=== PATIENT | female | born 1940 | race Caucasian/White ===

== ENCOUNTER 2016-05-03 09:16 | Emergency (ER) | payer MEDICARE, OTHER ==
[2016-05-03] MEDS ORDERED: PROMETHAZINE 25 MG/1 ML VIAL IM STA (10:48)
[2016-05-03] MEDS ORDERED: HYDROmorphone 1 MG/ML SYRINGE IM STA (10:48)
[2016-05-03] MEDS ORDERED: MAGNESIUM CITRATE 296 ML BOTTLE ONE (13:01)
[2016-05-03] MEDS ORDERED: MAGNESIUM CITRATE 296 ML BOTTLE PO STA (13:02)
== END 2016-05-03 13:14 | disposition home or self-care (01) ==
DX: S32.000A Wedge compression fracture of unspecified lumbar vertebra, initial encounter for closed fracture (principal); S22.000A Wedge compression fracture of unspecified thoracic vertebra, initial encounter for closed fracture; W19.XXXA Unspecified fall, initial encounter; K59.00 Constipation, unspecified; E11.9 Type 2 diabetes mellitus without complications; Z79.84 Long term (current) use of oral hypoglycemic drugs
CPT/HCPCS: 72100; 96372; 99283; 99284; A9270

== ENCOUNTER 2017-11-18 12:57 | Outpatient (CLI) | payer MEDICARE, OTHER ==
--- NOTE | 2017-11-18 15:29 | DEXA Report ---
Procedure Date: 11/18/2017 Accession Number: [id number] / [id number] Procedure: DEX - Dexa Spine and/or Hip CPT Code: FULL RESULT: EXAM: DUAL EMISSION X-RAY ABSORPTIOMETRY (DXA) SCAN EXAM DATE: 11/18/2017 01:26 PM. CLINICAL HISTORY: History of spinal compression fracture. Postmenopausal. COMPARISON: None. ADDITIONAL PATIENT INFORMATION: History of steroid use. TECHNIQUE: Dual energy x-ray absorptiometry (DXA) was performed on a [employer] System. Regions measured at the AP spine, femoral neck, and if needed, forearm. TECHNIQUE LIMITATIONS/EXCLUSIONS: None. FINDINGS: Lumbar Spine: Bone mineral density 0.991 g/sq cm, T-score -1.7, Z-score -0.1. Femoral Neck: Bone mineral density 0.639 g/sq cm, T-score -2.9, Z-score -1.0. Total Hip: Bone mineral density 0.665 g/sq cm, T-score -2.7, Z-score -1.1. IMPRESSION: Osteoporosis. The fracture risk is high. World Health Organization (WHO) Reporting guidelines (based on lowest BMD) for postmenopausal and perimenopausal women, men age 50 years and older: Normal: T-score at or greater than -1.0 Osteopenia: T-score between -1.1 to -2.4 Osteoporosis: T-score at or less than -2.5
== END 2017-11-18 12:58 | disposition home or self-care (01) ==
LOC: DI 12:57
PROVIDERS: ATTEND Family Medicine
DX: M81.0 Age-related osteoporosis without current pathological fracture (principal); Z87.81 Personal history of (healed) traumatic fracture
CPT/HCPCS: 77080

== ENCOUNTER 2018-05-29 08:45 | Outpatient (CLI) | payer MEDICARE, OTHER ==
--- NOTE | 2018-05-29 11:37 | CT Report ---
Reason: OCCIPITAL NEURALGIA Procedure Date: 05/29/2018 Accession Number: [id number] / [id number] Procedure: CT - CERVICAL SPINE WO CPT Code: FULL RESULT: EXAM: CT CERVICAL SPINE WITHOUT CONTRAST DATE: 05/29/2018 09:05 AM. HISTORY: Occipital neuralgia. COMPARISONS: CT cervical spine 09/25/2014. TECHNIQUE: Thin-section axial images were acquired of the cervical spine without contrast. Post-processing: Coronal and sagittal reformats. Other: None. In accordance with CT protocol optimization, one or more of the following dose reduction techniques were utilized for this exam: automated exposure control, adjustment of mA and/or KV based on patient size, or use of iterative reconstructive technique. FINDINGS: No fracture line is present in the cervical vertebral bodies. No suspicious lytic or blastic region is identified in the cervical vertebral bodies. No significant arthrosis is seen at C0-C1. There is hypertrophic change and narrowing associated with the predental space. This is stable. There is minimal arthrosis at C1-C2 on the right which is stable. Uncovertebral joint spurring is seen in the mid and lower cervical spine. Scattered facet hypertrophy is seen. This is greatest on the left at C2-C3, C3-C4, and C5-C6, and it is greatest on the right at C3-C4. Bilateral facet hypertrophy is seen at C6-C7. Loss of disk space height is seen at C5-C6. Anterior disk protrusion and osteophyte formation are seen at multiple levels in the cervical spine, most evident from C4 through C6. This is stable. Grade 1 retrolisthesis of C5 relative to C6 and C4 relative to C5 are stable. No new spondylolisthesis has developed. C2-C3: No foraminal stenosis. C3-C4: Mild to moderate right foraminal stenosis. C4-C5: No foraminal stenosis. C5-C6: Moderate bilateral foraminal stenosis. C6-C7: Right foraminal narrowing. C7-T1: No foraminal stenosis. A posterior protrusion of disk and osteophyte is seen at C5-C6. There is suspicion for a posterior disk protrusion at C6-C7. There is no obvious central canal stenosis. No mass is present in the visualized nasopharynx. No mass is present in either submandibular gland or in either parotid gland. The thyroid gland is not significantly enlarged. Centrilobular emphysema is seen in each upper lung. Visualized mastoid air cells are well-aerated. IMPRESSION: 1. Stable cervical spine CT. 2. Degenerative disk disease and osteophyte formation are seen at C5-C6. 3. Multilevel foraminal stenosis is present and is discussed above. 4. Scattered facet hypertrophy is present and is discussed above. 5. No suspicious lytic or blastic region is seen in the region of the craniocervical junction. 6. Centrilobular emphysema. RADIA
== END 2018-05-29 08:46 | disposition home or self-care (01) ==
LOC: DI 08:45
PROVIDERS: ATTEND Specialist
DX: M54.81 Occipital neuralgia (principal); M50.322 Other cervical disc degeneration at C5-C6 level; M48.02 Spinal stenosis, cervical region; M25.78 Osteophyte, vertebrae; J43.2 Centrilobular emphysema
CPT/HCPCS: 72125

== ENCOUNTER 2018-06-19 13:58 | Outpatient (CLI) | payer MEDICARE, OTHER ==
--- NOTE | 2018-06-19 16:05 | XRAY Report ---
Reason: ACUTE ON CHRONIC LEFT SHOULDER PAIN Procedure Date: 06/19/2018 Accession Number: [id number] / [id number] Procedure: XR - Shoulder 3 View LT CPT Code: FULL RESULT: EXAM: LEFT SHOULDER RADIOGRAPHY EXAM DATE: 06/19/2018 02:09 PM. CLINICAL HISTORY: ACUTE ON CHRONIC LEFT SHOULDER PAIN. COMPARISON: SHOULDER 3 VIEW RT 09/25/2014 11:37 PM. TECHNIQUE: 3 views. FINDINGS: Bones: Normal. No fracture or bone lesion. Joints: The glenohumeral and acromioclavicular joints are normal. Soft tissues: The visualized hemithorax is unremarkable. No soft tissue swelling. IMPRESSION: Normal shoulder radiography. RADIA
== END 2018-06-19 13:59 | disposition home or self-care (01) ==
LOC: DI 13:58
PROVIDERS: ATTEND Family Medicine
DX: M25.512 Pain in left shoulder (principal)

== ENCOUNTER 2019-01-07 16:05 | Outpatient (CLI) | payer MEDICARE, OTHER ==
--- NOTE | 2019-01-09 09:00 | XRAY Report ---
Reason: ACUTE ON CHRONIC LBP Procedure Date: 01/07/2019 Accession Number: [id number] / [id number] Procedure: XR - Lumbar Spine 2 View CPT Code: FULL RESULT: EXAM: LUMBOSACRAL SPINE RADIOGRAPHY EXAM DATE: 01/07/2019 04:10 PM. CLINICAL HISTORY: Gbhnz-op-ctcyzqz low back pain. COMPARISONS: LUMBAR SPINE 2 VIEW 05/03/2016 10:58 AM. TECHNIQUE: 3 views. FINDINGS: Alignment: No spondylolisthesis. The mild upper lumbar spine dextroscoliosis is again seen, similar to the prior exam. Bones: Five dxt-lyv-iqdhmsi lumbar vertebral bodies are present. Nonacute moderated compressive fracture at L1 again noted, similar to the prior exam. No new fractures or bone lesions. Disks: The mild degenerative disk disease at L4-L5 and L5-S1 demonstrated no significant interval changes. Facets: Hypertrophic degenerative changes at L4-L5 and L5-S1 is moderately increased. Sacroiliac Joints: Unremarkable. Soft Tissues: Diffuse moderate vascular wall calcification of the abdominal aorta and common iliac arteries is slightly increased. The visualized bowel gas pattern is normal. Status post cholecystectomy is again noted. IMPRESSION: 1. Interval stable appearance of the moderate compression fracture of L1. 2. Moderate hypertrophic facet disease at L4-L5, L5-S1, worsening since last exam. 3. No significant interval change of the mild upper lumbar spine dextroscoliosis and the mild degenerative disk disease at L4-L5 and L5-S1. RADIA
== END 2019-01-07 16:06 | disposition home or self-care (01) ==
LOC: DI 16:05
PROVIDERS: ATTEND Family Medicine
DX: M51.36 Other intervertebral disc degeneration, lumbar region (principal); M48.56XD Collapsed vertebra, not elsewhere classified, lumbar region, subsequent encounter for fracture with routine healing; M47.816 Spondylosis without myelopathy or radiculopathy, lumbar region; M47.817 Spondylosis without myelopathy or radiculopathy, lumbosacral region; M51.37 Other intervertebral disc degeneration, lumbosacral region; M41.9 Scoliosis, unspecified
CPT/HCPCS: 72100

== ENCOUNTER 2019-05-27 10:57 | Outpatient (CLI) | payer MEDICARE, OTHER ==
--- NOTE | 2019-06-03 11:00 | Mammography Report ---
Reason: ROUTINE MAMMO Procedure Date: 05/27/2019 Accession Number: [id number] / [id number] Procedure: [facility]INI - Screening Mammo w/Jonathan CPT Code: Final Report FULL RESULT: EXAM: Screening Mammo w/Jonathan DATE: 05/27/2019 11:30 AM CLINICAL HISTORY: Screening encounter. Family history of breast cancer in the sister at the age of 79, mother at the age of 85 and maternal grandmother at the age of 60. TECHNIQUE: (B) - Bilateral CC and MLO views were obtained. COMPARISON: 01/29/2017 through 09/27/2009. PARENCHYMAL PATTERN: (A) - The breast(s) demonstrate(s) scattered fibroglandular densities. FINDINGS: There are no suspicious masses, calcifications, or areas of distortion. IMPRESSION: Negative examination. BI-RADS category 1. RECOMMENDATION: (ANNUAL) - Recommend routine annual screening mammography. BI-RADS CATEGORY: (1) - Negative. STANDARD QUALIFYING STATEMENTS: 1. This examination was not reviewed with the aid of Computer-Aided Detection (CAD). 2. A negative or benign imaging report should not preclude biopsy if clinically suspicious findings are present. 3. Dense breasts may obscure an underlying neoplasm. 4. This examination was reviewed with the aid of 3D breast imaging (tomosynthesis).
== END 2019-05-27 10:58 | disposition home or self-care (01) ==
LOC: DI 10:57
PROVIDERS: ATTEND Internal Medicine
DX: Z12.31 Encounter for screening mammogram for malignant neoplasm of breast (principal); Z80.3 Family history of malignant neoplasm of breast
CPT/HCPCS: 77063; 77067

== ENCOUNTER 2019-06-05 14:02 | Emergency (ER) | payer MEDICARE, OTHER ==
--- NOTE | 2019-06-05 14:59 | ED Physician Documentation ---
PD HPI URI - Stated complaint Stated Complaint: COUGH - Chief complaint Chief Complaint: Resp - History obtained from History obtained from: Patient - History of Present Illness Timing - onset: How many weeks ago (some cough and runny nose over few weeks, worse the past several days.) Timing duration: Days, Weeks Timing details: Gradual onset, Still present, Waxing and waning Associated symptoms: Nasal congestion, Dry cough, Dyspnea. No: Fever, Chills, Chest pain Contributing factors: COPD / asthma. No: Sick contact, Travel, Immunocompromised Improves by: MDI/nebulizer Worsened by: Activity, Other (couigh) Similar symptoms before: Diagnosis (allergies and exac asthma - has been on steroids burst and cough meds when get like this.) Recently seen: Not recently seen Review of Systems Constitutional: reports: Myalgias. denies: Fever, Chills Nose: reports: Rhinorrhea / runny nose, Congestion Throat: denies: Sore throat Cardiac: denies: Chest pain / pressure Respiratory: reports: Dyspnea, Cough GI: denies: Nausea, Vomiting, Diarrhea Skin: denies: Rash PD PAST MEDICAL HISTORY - Past Medical History Cardiovascular: High cholesterol Respiratory: Asthma, COPD Endocrine/Autoimmune: Type 2 diabetes GI: GERD, Chronic diarrhea, Chronic constipation : None HEENT: None Psych: Depression Musculoskeletal: Osteoarthritis, Osteoporosis, Chronic back pain Derm: None - Past Surgical History Past Surgical History: Yes General: Cholecystectomy, Appendectomy 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 HEENT: Cataracts, Tonsil/Adenoidectomy - Present Medications Home Medications: Ambulatory Orders Medication Instructions Recorded Confirmed Albuterol Sulfate [Proair Hfa] 8.5 gm IH Q4HR PRN 11/06/13 05/03/16 Alprazolam 0.5 mg PO BID PRN 11/06/13 05/03/16 Cyanocobalamin [Vitamin B-12] 500 mcg PO DAILY 11/06/13 05/03/16 Escitalopram [Lexapro] 20 mg PO DAILY 11/06/13 05/03/16 Esomeprazole Magnesium [Nexium] 40 mg PO DAILY 11/06/13 05/03/16 Gabapentin 600 mg PO TID 11/06/13 05/03/16 Glycopyrrolate 2 mg PO BID 11/06/13 05/03/16 Lisinopril 10 mg PO DAILY 11/06/13 05/03/16 Propranolol [Inderal] 10 mg PO DAILY 11/06/13 05/03/16 Trazodone HCl 100 - 200 mg PO QPM PRN 11/06/13 05/03/16 Triamcinolone Acetonide [Nasacort] 1 ml NS BID 11/06/13 05/03/16 metFORMIN [Glucophage] 500 mg PO BIDWM 11/06/13 05/03/16 Fluticasone/Salmeterol [Advair Hfa 12 gm IH BID 08/24/15 05/03/16 230-21 Mcg Inhaler] Saccharomyces Boulardii [Florastor] 250 mg PO BID 08/24/15 05/03/16 oxyCODONE [Roxicodone] 5 mg PO Q4-6H 08/24/15 05/03/16 Bisacodyl Supp [Dulcolax Supp] 10 mg DE DAILY PRN #10 supp 05/03/16 HYDROmorphone [Dilaudid] 2 mg PO Q4H PRN #30 tablet 05/03/16 traMADol [Ultram] 50 mg PO Q4-6H 05/03/16 05/03/16 Albuterol Sulfate [Albuterol 2 puffs IH QID #1 hfa.aer.ad 06/05/19 Sulfate Hfa] Benzonatate 100 mg PO TID PRN #25 capsule 06/05/19 Doxycycline Monohydrate 100 mg PO BID #14 tablet 06/05/19 dexAMETHasone [Decadron] 4 mg PO DAILY #7 tablet 06/05/19 - Allergies Allergies/Adverse Reactions: Allergies Allergy/AdvReac Type Severity Reaction Status Date / Time No Known Drug Allergies Allergy Verified 06/05/19 14:15 - Social History Does the pt smoke?: No Smoking Status: Never smoker Does the pt drink ETOH?: Yes Does the pt have substance abuse?: No - Immunizations Immunizations are current?: Yes Immunizations: TDAP current <10years - POLST Patient has POLST: Yes PD ED PE NORMAL - Vitals Vital signs reviewed: Yes - General General: Alert and oriented X 3, No acute distress, Well developed/nourished - HEENT HEENT: Moist mucous membranes, Pharynx benign - Neck Neck: Supple, no meningeal sign, No adenopathy - Cardiac Cardiac: RRR, No murmur - Respiratory Respiratory: No: Clear bilaterally (no coarse sounds. Has prolonged expiratory phase. ) Results - Vitals Vitals: Vital Signs - 24 hr 06/05/19 06/05/19 06/05/19 14:11 15:32 15:48 Temperature 37.3 C Heart Rate 98 88 96 Respiratory 20 20 Rate Blood Pressure 118/84 H 124/79 O2 Saturation 92 91 L 06/05/19 16:22 Temperature Heart Rate 92 Respiratory 18 Rate Blood Pressure 110/74 O2 Saturation 92 Oxygen O2 Source Room air - Rads (name of study) chest xray Radiology: Prelim report reviewed (prior scarring right lowe lobe. ), See rad report PD MEDICAL DECISION MAKING - ED course Complexity details: reviewed results (the scarring RLL could be c/w some element of infiltrate, given her increased cough and thu), re-evaluated patient, considered differential (does not seem ill, less likely infectious. Consider allergies.), d/w patient Departure - Departure Disposition: Home, Self Care Clinical Impression: Acute dyspnea Exacerbation of asthma Qualifiers: Asthma severity: moderate Asthma persistence: persistent Qualified Code(s): J45.41 - Moderate persistent asthma with (acute) exacerbation Condition: Stable Record reviewed to determine appropriate education?: Yes Follow-Up: Ronaldo Wan MD [Primary Care Provider] - Prescriptions: Albuterol Sulfate [Albuterol Sulfate Hfa] 2 puffs IH QID #1 hfa.aer.ad Benzonatate 100 mg PO TID PRN #25 capsule PRN Reason: Cough dexAMETHasone [Decadron] 4 mg PO DAILY #7 tablet Doxycycline Monohydrate 100 mg PO BID #14 tablet Comments: Continue usual medications. Use your follow-up for Albuteroll nebulizer or inhaler 3-4 times a day regularly for the next 5 to 7 days and then as needed. Use Decadron oral steroid daily for the next week as well. Benzonatate as needed for cough suppression. For concern of bacterial infection, will add doxycycline oral antibiotic twice daily for a week as well. Recheck if not improving well over the next 2 to 3 days. Return if worse. Discharge Date/Time: 06/05/19 16:24
--- NOTE | 2019-06-05 15:11 | XRAY Report ---
Reason: Productive cough for 2 weeks. Procedure Date: 06/05/2019 Accession Number: [id number] / [id number] Procedure: XR - Chest 2 View X-Ray CPT Code: 77494 Final Report FULL RESULT: EXAM: CHEST RADIOGRAPHY EXAM DATE: 06/05/2019 02:24 PM. CLINICAL HISTORY: Productive cough for 2 weeks. COMPARISON: CHEST 2 VIEW PA/LAT 08/24/2015 10:47 PM. TECHNIQUE: 2 views. FINDINGS: Lungs/Pleura: Residual disease/scarring and fibrosis is seen in right lower lung zone with loss of lung volume. Clear left lung. No focal opacities evident. No pleural effusion. No pneumothorax. Normal volumes. Mediastinum: Heart and mediastinal contours are unremarkable. Other: None. IMPRESSION: No acute cardiopulmonary process. Residual disease/scarring and fibrosis in right lower lung zone with loss of lung volume RADIA
[2019-06-05] MEDS ORDERED: CHERRY SYRUP 10 ML UDC PO ONE (15:19)
[2019-06-05] MEDS ORDERED: IPRATROPIUM/ALBUTEROL 3 ML NEB INH STA (15:19)
[2019-06-05] MEDS ORDERED: DEXAMETHASONE 10 MG/ML VIAL PO STA (15:19)
[2019-06-05] MEDS ORDERED: DOXYCYCLINE 100 MG TABLET PO STA (15:19)
[2019-06-05] MEDS ORDERED: BENZONATATE 100 MG CAPSULE PO STA (15:19)
[2019-06-05 16:24] VITALS: BP 110/74
== END 2019-06-05 16:24 | disposition home or self-care (01) ==
LOC: ED 14:02
DX: J45.41 Moderate persistent asthma with (acute) exacerbation (principal); J44.9 Chronic obstructive pulmonary disease, unspecified; E11.9 Type 2 diabetes mellitus without complications; Z79.84 Long term (current) use of oral hypoglycemic drugs
CPT/HCPCS: 71046; 94640; 99284; A9270

== ENCOUNTER 2019-09-25 11:44 | Emergency (ER) | payer MEDICARE, OTHER ==
[2019-09-25 12:06] VITALS: BP 112/73
[2019-09-25] MEDS ORDERED: DEXAMETHASONE 10 MG/ML VIAL IVP STA (12:27)
[2019-09-25] MEDS ORDERED: KETOROLAC 30 MG/ML VIAL IVP STA (12:27)
--- NOTE | 2019-09-25 12:28 | ED Physician Documentation ---
History of Present Illness - Stated complaint Stated Complaint: ENRIQUEZ - Chief complaint Chief Complaint: General - History obtained from History obtained from: Patient - History of Present Illness Timing: How many hours ago (4) Pain level max: 10 Pain level now: 5 - Additonal information Additional information: 79-year-old female presents to the emergency department with pain to the left side of her head, this been ongoing for the past 4 to 5 days. Occasionally reaches a 10 out of 10 pain. States it is sharp, intermittent. Nothing makes it better or worse. She saw her primary care provider yesterday, diagnosed with trigeminal neuralgia and given Tegretol. She states that she does not feel any better and her primary care provider told her to come here for an MRI and further evaluation. Apparently the MRI has been ordered as an outpatient already No trauma. No fever. Worse with palpation. No travel. No neck or back pain. Review of Systems Ten Systems: 10 systems reviewed and negative Constitutional: denies: Fever, Chills Ears: denies: Ear pain Nose: denies: Rhinorrhea / runny nose, Congestion Cardiac: denies: Palpitations Respiratory: denies: Cough GI: denies: Nausea, Vomiting, Diarrhea Skin: denies: Rash Musculoskeletal: denies: Neck pain, Back pain Neurologic: denies: Headache PD PAST MEDICAL HISTORY - Past Medical History Cardiovascular: High cholesterol Respiratory: Asthma, COPD Endocrine/Autoimmune: Type 2 diabetes GI: GERD, Chronic diarrhea, Chronic constipation : None HEENT: None Psych: Depression Musculoskeletal: Osteoarthritis, Osteoporosis, Chronic back pain Derm: None - Past Surgical History Past Surgical History: Yes General: Cholecystectomy, Appendectomy 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 HEENT: Cataracts, Tonsil/Adenoidectomy - Present Medications Home Medications: Ambulatory Orders Medication Instructions Recorded Confirmed Albuterol Sulfate [Proair Hfa] 2 puffs IH Q4HR PRN 11/06/13 09/25/19 Alprazolam 0.5 mg PO BID PRN 11/06/13 09/25/19 Cyanocobalamin [Vitamin B-12] 500 mcg PO DAILY 11/06/13 09/25/19 Escitalopram [Lexapro] 20 mg PO DAILY 11/06/13 09/25/19 Glycopyrrolate 2 mg PO TID PRN 11/06/13 09/25/19 Lisinopril 10 mg PO DAILY 11/06/13 09/25/19 Propranolol [Inderal] 10 mg PO DAILY 11/06/13 09/25/19 Trazodone HCl 100 - 200 mg PO QPM PRN 11/06/13 09/25/19 Triamcinolone Acetonide [Nasacort] 1 spray NS BID 11/06/13 09/25/19 metFORMIN [Glucophage] 500 mg PO BIDWM 11/06/13 09/25/19 Fluticasone/Salmeterol [Advair Hfa 2 puffs IH BID 08/24/15 09/25/19 230-21 Mcg Inhaler] Albuterol 2.5 mg INH Q4H PRN 09/25/19 09/25/19 Alendronate Sodium 70 mg PO OAW 09/25/19 09/25/19 Carbamazepine 200 mg PO BID PRN 09/25/19 09/25/19 Ergocalciferol (Vitamin D2) 0 unit PO DAILY 09/25/19 09/25/19 [Vitamin D2] Famotidine 20 mg PO DAILY 09/25/19 09/25/19 Gabapentin [Neurontin] 100 mg PO TID 09/25/19 09/25/19 Latanoprost 0.005% Ophth Drops 1 drops EACHEYE DAILY 09/25/19 09/25/19 [Xalatan Ophth Drops] Magnesium Oxide [Magnesium] 400 mg PO DAILY 09/25/19 09/25/19 Meloxicam [Mobic] 7.5 mg PO BID PRN #20 tablet 09/25/19 Rabeprazole Sodium 20 mg PO BID 09/25/19 09/25/19 Rosuvastatin Calcium 20 mg PO DAILY 09/25/19 09/25/19 Tiotropium [place] [Spiriva 2 inh IH DAILY 09/25/19 09/25/19 Respimat] predniSONE [Prednisone] 20 mg PO DAILY #5 tablet 09/25/19 - Allergies Allergies/Adverse Reactions: Allergies Allergy/AdvReac Type Severity Reaction Status Date / Time No Known Drug Allergies Allergy Verified 09/25/19 12:06 - Social History Does the pt smoke?: No Smoking Status: Never smoker Does the pt drink ETOH?: Yes Does the pt have substance abuse?: No - Immunizations Immunizations are current?: Yes Immunizations: TDAP current <10years - POLST Patient has POLST: Yes PD ED PE NORMAL - Vitals Vital signs reviewed: Yes - General General: Alert and oriented X 3, No acute distress, Well developed/nourished - HEENT HEENT: Atraumatic, PERRL, EOMI, Ears normal, Moist mucous membranes, Pharynx benign, Other (No temporal artery tenderness. There is tenderness on the left side of the scalp. 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, No motor deficit, No sensory deficit, Normal speech Eye Opening: Spontaneous Motor: Obeys Commands Verbal: Oriented GCS Score: 15 - Psych Psych: Normal mood, Normal affect Results - Vitals Vitals: Vital Signs - 24 hr 09/25/19 11:55 Temperature 36.8 C Heart Rate 108 H Respiratory 16 Rate Blood Pressure 112/73 O2 Saturation 92 Oxygen O2 Source Room air - Labs Labs: Laboratory Tests 09/25/19 09/25/19 09/25/19 12:36 12:36 12:36 WBC 6.6 RBC 3.68 L Hgb 11.9 L Hct 35.6 L MCV 96.7 MCH 32.3 H MCHC 33.4 RDW 13.8 Plt Count 148 MPV 9.1 Neut # (Auto) 3.5 Lymph # (Auto) 2.3 [place] # (Auto) 0.6 Eos # (Auto) 0.1 Baso # (Auto) 0.0 Absolute Nucleated RBC 0.00 Nucleated RBC % 0.0 ESR 11 Sodium 138 Potassium 4.2 Chloride 100 L Carbon Dioxide 30 Anion Gap 8.0 BUN 11 Creatinine 0.5 Estimated GFR (MDRD) 120 Glucose 222 H Calcium 9.0 C-Reactive Protein < 1.0 - Rads (name of study) Head CT Radiology: Prelim report reviewed, EMP read contemporaneously, See rad report (No acute abnormality) PD MEDICAL DECISION MAKING - ED course Complexity details: reviewed results, re-evaluated patient, considered differential, d/w patient ED course: 79-year-old female with a left-sided headache. Feels better after Toradol and dexamethasone. Will prescribe anti-inflammatories for home. Unclear etiology o f her symptoms. Not consistent with temporal arteritis. Possible occipital neuralgia? Normal neuro exam. We will have her continue the Tegretol at home as well. No evidence of subarachnoid hemorrhage, meningitis. Patient and family counseled regarding signs and symptoms for which I believe and urgent re- evaluation would be necessary. Patient with good understanding of and agreement to plan and is comfortable going home at this time This document was made in part using voice recognition software. While efforts are made to proofread this document, sound alike and grammatical errors may oc cur. Departure - Departure Disposition: Home, Self Care Clinical Impression: Head ache Qualifiers: Headache type: unspecified Headache chronicity pattern: acute headache Intractability: not intractable Qualified Code(s): R51 - Headache Condition: Good Instructions: ED Cephalgia Unspecified Follow-Up: Ronaldo Wan MD [Primary Care Provider] - Within 1 week Prescriptions: Meloxicam [Mobic] 7.5 mg PO BID PRN #20 tablet PRN Reason: Pain predniSONE [Prednisone] 20 mg PO DAILY #5 tablet Comments: Your prescriptions were sent electronically to [facility] in [place]. Return if you worsen. Your laboratory testing does not show any acute abnormalities today and your head CT is normal. Follow-up with your primary care provider for further care. Discharge Date/Time: 09/25/19 13:50
[2019-09-25 12:48] LABS: BASOPHILS % (AUTO) 0.3 %; EOSINOPHILS # (AUTO) 0.1 10^3/uL (0.0-0.7); EOSINOPHILS % (AUTO) 1.4 %; HGB - HEMOGLOBIN 11.9 g/dL (12.0-16.0); LYMPHOCYTES # (AUTO) 2.3 10^3/uL (1.5-3.5); LYMPHOCYTES % (AUTO) 34.4 %; MEAN CORPUSCULAR HEMOGLOBIN 32.3 pg (27.0-31.0); MEAN CORPUSCULAR HGB CONC 33.4 g/dL (32.0-36.0); MEAN CORPUSCULAR VOLUME 96.7 fL (81.0-99.0); MEAN PLATELET VOLUME 9.1 fL (7.9-10.8); MONOCYTES # (AUTO) 0.6 10^3/uL (0.0-1.0); MONOCYTES % (AUTO) 9.7 %; NEUTROPHILS # (AUTO) 3.5 10^3/uL (1.5-6.6); NEUTROPHILS % (AUTO) 53.9 %; PLT - PLATELET COUNT 148 10^3/uL (130-450); RED BLOOD COUNT 3.68 10^6/uL (4.20-5.40); RED CELL DISTRIBUTION WIDTH 13.8 % (12.0-15.0); WHITE BLOOD COUNT 6.6 x10^3/uL (4.8-10.8)
[2019-09-25 13:09] LABS: BUN - BLOOD UREA NITROGEN 11 mg/dL (6-20); CARBON DIOXIDE - CO2 30 mmol/L (21-32); CHLORIDE 100 mmol/L (101-111); CREATININE 0.5 mg/dL (0.4-1.0); GLUCOSE 222 mg/dL (70-100); SODIUM 138 mmol/L (135-145)
[2019-09-25 13:10] LABS: CRP - C-REACTIVE PROTEIN < 1.0 mg/dL (0-1.0)
--- NOTE | 2019-09-25 13:29 | CT Report ---
PROCEDURE: HEAD WO INDICATIONS: headache. L sided TECHNIQUE: Noncontrast 4.5 mm thick angled axial sections acquired from the foramen magnum to the vertex. For r adiation dose reduction, the following was used: automated exposure control, adjustment of mA and/or kV according to patient size. COMPARISON: None. FINDINGS: Image quality: Excellent. CSF spaces: Basal cisterns are patent. No extra-axial fluid collections. Ventricles are normal in size and shape. Brain: No midline shift. No intracranial masses or hemorrhage. Blue-white matter interface is norm al. Skull and face: Calvarium and visualized facial bones are intact, without suspicious lesions. Sinuses: Visualized sinuses and mastoids are clear. IMPRESSION: Normal for age, source of current symptoms is not seen. Reviewed by: Santosh Penn MD on 09/25/2019 1:28 PM PDT Approved by: Santosh Penn MD on 09/25/2019 1:28 PM PDT Station ID: [id number]
== END 2019-09-25 13:50 | disposition home or self-care (01) ==
LOC: ED 11:44
DX: R51 Headache (principal); E11.9 Type 2 diabetes mellitus without complications; Z79.84 Long term (current) use of oral hypoglycemic drugs
CPT/HCPCS: 36415; 70450; 80048; 85025; 85651; 86140; 96374; 99285

== ENCOUNTER 2019-09-29 16:41 | Outpatient (CLI) | payer MEDICARE, OTHER ==
[2019-09-29] MEDS ORDERED: GADOBUTROL 7.5 MMOL/7.5 ML VIAL ONE (16:57)
[2019-09-29] MEDS ORDERED: GADOBUTROL 7.5 MMOL/7.5 ML VIAL IVP ONE (17:42)
--- NOTE | 2019-09-30 15:36 | MRI Report ---
PROCEDURE: Brain W/WO INDICATIONS: TRIGEMINAL NEURALGIA CONTRAST: IV CONTRAST: Gadavist ml: 7.5 TECHNIQUE: Noncontrast axial T1 spin echo, axial T2 fast spin echo, sagittal and axial FLAIR, coronal T2 fast sp in echo, axial gradient echo, axial diffusion and ADC through the brain. After the administration of contrast, axial and coronal T1 spin echo with fat saturation through the brain. COMPARISON: CT head 09/25/2019. FINDINGS: Image quality: Excellent. CSF spaces: Basal cisterns are patent. No extra-axial fluid collections. Ventricles are normal in size and shape. Brain: No midline shift. No intracranial bleeds or masses. No abnormal intracranial enhancement. There is cerebral volume loss for age. There is periventricular white matter chronic small vessel is chemic change. The brainstem appears normal. Diffusion-weighted images demonstrate no acute ischemi c insults. No chronic ischemic insults. Normal intravascular flow voids are present. Visualized cranial nerves demonstrate no areas of abnormal enhancement, mass lesion or abnormal signa l. Skull and face: Calvarial marrow is normal in signal. Orbits appear normal. Sinuses: Sinuses and mastoids appear clear. IMPRESSION: 1. No acute intracranial process. 2. Moderate atrophy and chronic microvascular ischemic changes. 3. Visualized cranial nerves demonstrate no areas of abnormal signal, mass lesion or enhancement. Reviewed by: Pilar Lloyd MD on 09/30/2019 3:34 PM PDT Approved by: Pilar Lloyd MD on 09/30/2019 3:34 PM PDT Station ID: [id number]
== END 2019-09-29 16:42 | disposition home or self-care (01) ==
LOC: DI 16:41
PROVIDERS: ATTEND Physician Assistant Medical
DX: G50.0 Trigeminal neuralgia (principal)
CPT/HCPCS: 70553; A9585

== ENCOUNTER 2019-10-12 14:07 | Outpatient (CLI) | payer MEDICARE, OTHER ==
--- NOTE | 2019-10-12 17:22 | XRAY Report ---
PROCEDURE: Hip w/Pelvis 2-3V LT INDICATIONS: ACUTE ON CHRONIC L HIP PX TECHNIQUE: AP pelvis with lateral view(s) of the bilateral hip(s). COMPARISON: None. FINDINGS: Bones: No fractures or dislocations. Pelvic ring appears intact. No suspicious bony lesions. Mode rate to severe bilateral degenerative hip joint space narrowing. Soft tissues: The visualized bowel gas pattern is normal. No suspicious soft tissue calcifications. IMPRESSION: Moderate to severe bilateral degenerative hip joint space narrowing most suggestive oste oarthritis. Reviewed by: Pilar Lloyd MD on 10/12/2019 5:21 PM PDT Approved by: Pilar Lloyd MD on 10/12/2019 5:21 PM PDT Station ID: [id number]
== END 2019-10-12 14:08 | disposition home or self-care (01) ==
LOC: DI 14:07
PROVIDERS: ATTEND Family Medicine
DX: M16.0 Bilateral primary osteoarthritis of hip (principal)

== ENCOUNTER 2019-10-19 05:05 | Emergency (ER) | payer MEDICARE, OTHER ==
--- NOTE | 2019-10-19 05:16 | ED Physician Documentation ---
PD HPI UPPER EXT INJURY - Stated complaint Stated Complaint: GLF/SHOULDER/BACK PX - Chief complaint Chief Complaint: Ext Problem - History obtained from History obtained from: Patient - History of Present Illness Location: Left, Shoulder, Other (also scapular area) Type of injury: Fall (She got up to go to the bathroom and has had some balance problems. She states she remembers missing a step on the stairs and falling down 3 steps onto her left shoulder. Pain left shoulders and scapula and upper ribs) Where injury occurred: Home Timing - onset: How many minutes ago (30) Timing - details: Abrupt onset, Still present Worsened by: Moving (of the shoulder) Associated symptoms: No: Weakness, Numbness Similar symptoms before: Has not had sx before Review of Systems Constitutional: denies: Fever, Chills Nose: denies: Rhinorrhea / runny nose, Congestion Throat: denies: Sore throat Cardiac: reports: Chest pain / pressure (left upper chest near clavicle.). denies: Palpitations Respiratory: denies: Dyspnea, Cough GI: denies: Abdominal Pain, Nausea, Vomiting, Diarrhea Skin: reports: Abrasion (s) (left knee) Neurologic: reports: Generalized weakness. 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 HEENT: Cataracts, Tonsil/Adenoidectomy - Present Medications Home Medications: Ambulatory Orders Medication Instructions Recorded Confirmed Albuterol Sulfate [Proair Hfa] 2 puffs IH Q4HR PRN 11/06/13 09/25/19 Alprazolam 0.5 mg PO BID PRN 11/06/13 09/25/19 Cyanocobalamin [Vitamin B-12] 500 mcg PO DAILY 11/06/13 09/25/19 Escitalopram [Lexapro] 20 mg PO DAILY 11/06/13 09/25/19 Glycopyrrolate 2 mg PO TID PRN 11/06/13 09/25/19 Lisinopril 10 mg PO DAILY 11/06/13 09/25/19 Propranolol [Inderal] 10 mg PO DAILY 11/06/13 09/25/19 Trazodone HCl 100 - 200 mg PO QPM PRN 11/06/13 09/25/19 Triamcinolone Acetonide [Nasacort] 1 spray NS BID 11/06/13 09/25/19 metFORMIN [Glucophage] 500 mg PO BIDWM 11/06/13 09/25/19 Fluticasone/Salmeterol [Advair Hfa 2 puffs IH BID 08/24/15 09/25/19 230-21 Mcg Inhaler] Albuterol 2.5 mg INH Q4H PRN 09/25/19 09/25/19 Alendronate Sodium 70 mg PO OAW 09/25/19 09/25/19 Carbamazepine 200 mg PO BID PRN 09/25/19 09/25/19 Ergocalciferol (Vitamin D2) 0 unit PO DAILY 09/25/19 09/25/19 [Vitamin D2] Famotidine 20 mg PO DAILY 09/25/19 09/25/19 Gabapentin [Neurontin] 100 mg PO TID 09/25/19 09/25/19 Latanoprost 0.005% Ophth Drops 1 drops EACHEYE DAILY 09/25/19 09/25/19 [Xalatan Ophth Drops] Magnesium Oxide [Magnesium] 400 mg PO DAILY 09/25/19 09/25/19 Meloxicam [Mobic] 7.5 mg PO BID PRN #20 tablet 09/25/19 Rabeprazole Sodium 20 mg PO BID 09/25/19 09/25/19 Rosuvastatin Calcium 20 mg PO DAILY 09/25/19 09/25/19 Tiotropium [place] [Spiriva 2 inh IH DAILY 09/25/19 09/25/19 Respimat] predniSONE [Prednisone] 20 mg PO DAILY #5 tablet 09/25/19 - Allergies Allergies/Adverse Reactions: Allergies Allergy/AdvReac Type Severity Reaction Status Date / Time No Known Drug Allergies Allergy Verified 10/19/19 05:10 - Social History Does the pt smoke?: No Smoking Status: Never smoker Does the pt drink ETOH?: Yes Does the pt have substance abuse?: No - Immunizations Immunizations are current?: Yes Immunizations: TDAP current <10years - POLST Patient has POLST: Yes PD ED PE NORMAL - Vitals Vital signs reviewed: Yes - General General: Alert and oriented X 3, Well developed/nourished - HEENT HEENT: Atraumatic - Neck Neck: Supple, no meningeal sign, No bony TTP, No adenopathy - Cardiac Cardiac: RRR, No murmur - Respiratory Respiratory: Clear bilaterally, Other (There is tenderness in the left upper chest wall anteriorly and some towards this lateral scapular area. There is tenderness at the proximal humerus with very guarded motion) - Abdomen Abdomen: Soft, Non tender - Back Back: No CVA TTP, No spinal TTP - Derm Derm: Normal color, Warm and dry - Extremities Extremities: No deformity, No edema, No calf tenderness / cord, Other (Tender at the proximal left humerus with guarded range of motion and very limited. No gross deformity noted.) - Neuro Neuro: Alert and oriented X 3, No motor deficit, Normal speech Eye Opening: Spontaneous Motor: Obeys Commands Verbal: Oriented GCS Score: 15 Results - Vitals Vitals: Vital Signs - 24 hr 10/19/19 10/19/19 10/19/19 05:10 05:12 06:25 Temperature 36.9 C Heart Rate 94 92 88 Respiratory 20 20 16 Rate Blood Pressure 116/68 104/72 107/55 L O2 Saturation 90 L 92 100 10/19/19 07:14 Temperature Heart Rate 86 Respiratory 16 Rate Blood Pressure 112/80 O2 Saturation 95 Oxygen O2 Source Room air - Labs Labs: Laboratory Tests 10/19/19 10/19/19 05:25 05:25 WBC 10.7 RBC 4.00 L Hgb 13.2 Hct 38.2 MCV 95.5 MCH 33.0 H MCHC 34.6 RDW 13.1 Plt Count 157 MPV 9.3 Neut # (Auto) 5.9 Lymph # (Auto) 3.4 [place] # (Auto) 1.1 H Eos # (Auto) 0.1 Baso # (Auto) 0.0 Absolute Nucleated RBC 0.00 Nucleated RBC % 0.0 Sodium 136 Potassium 4.0 Chloride 101 Carbon Dioxide 27 Anion Gap 8.0 BUN 12 Creatinine 0.5 Estimated GFR (MDRD) 120 Glucose 213 H Calcium 9.1 Total Bilirubin 0.4 AST 14 ALT 15 Alkaline Phosphatase 49 Total Protein 6.5 L Albumin 3.9 Globulin 2.6 Albumin/Globulin Ratio 1.5 Lipase 23 - Rads (name of study) ct chest Radiology: EMP read contemporaneously, See rad report left shoulder Radiology: EMP read contemporaneously (Impacted and comminuted humeral neck and head fracture. No pneumothorax is seen.), See rad report Departure - Departure Disposition: 01 Home, Self Care Clinical Impression: Accidental fall Qualifiers: Encounter type: initial encounter Qualified Code(s): W19.XXXA - Unspecified fall, initial encounter Humeral surgical neck fracture Qualifiers: Encounter type: initial encounter Fracture type: closed Fracture morphology: unspecified fracture morphology Fracture alignment: nondisplaced Laterality: left Qualified Code(s): S42.215A - Unspecified nondisplaced fracture of surgical neck of left humerus, initial encounter for closed fracture Condition: Stable Record reviewed to determine appropriate education?: Yes Instructions: ED Fx Shoulder Follow-Up: Ronaldo Wan MD [Primary Care Provider] - Yossi Parra MD [Provider Admit Priv/Credential] - Comments: Use a sling for immobilization of the shoulder to allow healing and reduce pain. Sleep and rest and the best position of comfort for it. Follow-up with orthopedics in about a week, call later today for an appointment. Continue usual medications as needed for pain. Initially Tylenol 3-4 times a day and add pain pills if needed. You will be in a sling for about 4 to 6 weeks though they typically will start range of motion exercises after a week or 2 of it initially healing Discharge Date/Time: 10/19/19 07:14
[2019-10-19] MEDS ORDERED: HYDROmorphone 1 MG/ML CARPUJECT IVP STA ×2 (05:26→06:33)
[2019-10-19] MEDS ORDERED: KETOROLAC 15 MG/ML VIAL IVP STA (05:26)
[2019-10-19] MEDS ORDERED: SODIUM CHLORIDE 0.9% 1,000 ML IV STA (05:26)
[2019-10-19] MEDS ORDERED: ONDANSETRON 4 MG/2 ML VIAL IVP STA (05:26)
[2019-10-19 05:36] LABS: BASOPHILS % (AUTO) 0.4 %; EOSINOPHILS # (AUTO) 0.1 10^3/uL (0.0-0.7); HGB - HEMOGLOBIN 13.2 g/dL (12.0-16.0); LYMPHOCYTES # (AUTO) 3.4 10^3/uL (1.5-3.5); LYMPHOCYTES % (AUTO) 32.2 %; MEAN CORPUSCULAR HGB CONC 34.6 g/dL (32.0-36.0); MEAN CORPUSCULAR VOLUME 95.5 fL (81.0-99.0); MEAN PLATELET VOLUME 9.3 fL (7.9-10.8); MONOCYTES # (AUTO) 1.1 10^3/uL (0.0-1.0); MONOCYTES % (AUTO) 10.3 %; NEUTROPHILS # (AUTO) 5.9 10^3/uL (1.5-6.6); NEUTROPHILS % (AUTO) 55.5 %; PLT - PLATELET COUNT 157 10^3/uL (130-450); RED CELL DISTRIBUTION WIDTH 13.1 % (12.0-15.0); WHITE BLOOD COUNT 10.7 x10^3/uL (4.8-10.8)
[2019-10-19 05:48] LABS: ALBUMIN 3.9 g/dL (3.2-5.5); ALBUMIN/GLOBULIN RATIO 1.5 (1.0-2.2); BILIRUBIN,TOTAL 0.4 mg/dL (0.2-1.0); CALCIUM 9.1 mg/dL (8.5-10.3); CREATININE 0.5 mg/dL (0.4-1.0); TOTAL PROTEIN 6.5 g/dL (6.7-8.2)
[2019-10-19] MEDS ORDERED: IOVERSOL 320 100 ML VIAL IVP ONE ×2 (05:54→06:37)
[2019-10-19 07:15] VITALS: BP 112/80
--- NOTE | 2019-10-19 07:53 | XRAY Report ---
PROCEDURE: Shoulder 2 View LT INDICATIONS: fall to left shoulder TECHNIQUE: 2 views of the shoulder were acquired. COMPARISON: None. FINDINGS: Bones: Comminuted fracture of the left humeral head. Left second, third and fifth rib fractures are n oted. Soft tissues: No suspicious soft tissue calcifications. IMPRESSION: 1. Comminuted proximal left humerus fracture. 2. Displaced left second, third and fifth rib fractures. Reviewed by: Marissa Rm MD, PhD on 10/19/2019 7:52 AM PDT Approved by: Marissa Rm MD, PhD on 10/19/2019 7:52 AM PDT Station ID: [id number]
--- NOTE | 2019-10-19 08:30 | CT Report ---
PROCEDURE: CHEST W INDICATIONS: fall down steps, pain left shoulder/chest CONTRAST: IV CONTRAST: Optiray 320 ml: 100 PO CONTRAST: *NO PO CONTRAST TECHNIQUE: After the administration of intravenous contrast, 5 mm thick sections acquired from the pulmonary api stefanie to the posterior costophrenic angles. 7 mm thick coronal MIP reformats were acquired. For radia tion dose reduction, the following was used: automated exposure control, adjustment of mA and/or kV according to patient size. COMPARISON: 2 view chest x-ray 06/05/2019 and 08/24/2015. FINDINGS: Image quality: Excellent. Lungs and pleura: Probable scarring in the lateral periphery of the right lung base. Mild apical pred ominant centrilobular emphysematous disease. Trace left-sided hemothorax. No pneumothorax. Central and peripheral airways are patent and normal in caliber. Mediastinum: Postsurgical changes in the right ellie/mediastinum. Heart size is normal. Atherosclero tic calcifications noted in the aorta, great vessels and coronary vasculature. No pericardial effusi on. No mediastinal or hilar adenopathy by size criteria. Thoracic aorta and central pulmonary arter ies are normal in size. Esophagus is normal in caliber. No hiatal hernia. Bones and chest wall: Mildly displaced left first, second, third, fourth and fifth rib fractures. Com minuted fracture of the left humeral head/neck. No acute appearing T10, T11 and T12 compression fract ures. Spine degenerative disc disease and facet arthropathy are noted. No axillary or supraclavicula r adenopathy by size criteria. Thyroid gland is within normal limits. Abdomen: Status post cholecystectomy. There is a partially visualized 1.7 cm in diameter exophytic l esion involving the anterior margin of the right right kidney has density measurements of 57 Hounsfie ld units. IMPRESSION: 1. Comminuted proximal left humerus fracture. 2. Left first, second, third, fourth and fifth rib fractures. 3. Trace left hemithorax. No pneumothorax. 4. Probable masslike scarring in the right lung base. Recommend follow-up CT scan in 3 months to conf irm stability of the finding. 4. Emphysema. 5. Atherosclerosis including the coronary vasculature. 6. Suspicious, partially visualized right renal nodule. Recommend dedicated CT scan of the abdomen wi th and without contrast (renal protocol) for further evaluation. 7. Postsurgical changes. Reviewed by: Marissa Rm MD, PhD on 10/19/2019 8:28 AM PDT Approved by: Marissa Rm MD, PhD on 10/19/2019 8:28 AM PDT Station ID: [id number]
== END 2019-10-19 07:14 | disposition home or self-care (01) ==
LOC: ED 05:05
DX: S42.215A Unspecified nondisplaced fracture of surgical neck of left humerus, initial encounter for closed fracture (principal); S22.42XA Multiple fractures of ribs, left side, initial encounter for closed fracture; S27.1XXA Traumatic hemothorax, initial encounter; S80.212A Abrasion, left knee, initial encounter; W10.9XXA Fall (on) (from) unspecified stairs and steps, initial encounter; Y92.009 Unspecified place in unspecified non-institutional (private) residence as the place of occurrence of the external cause; J43.2 Centrilobular emphysema; E11.9 Type 2 diabetes mellitus without complications; Z79.84 Long term (current) use of oral hypoglycemic drugs
CPT/HCPCS: 36415; 71260; 73030; 80053; 83690; 85025; 96361; 96374; 96376; 99284; J1170; Q9967

== ENCOUNTER → 2019-10-29 | Outpatient (CLI) | payer MEDICARE, OTHER ==
--- NOTE | 2019-10-29 15:07 | XRAY Report ---
Reason: LEFT HUMERAL HEAD FRACTURE Procedure Date: 10/29/2019 Accession Number: [id number] / [id number] Procedure: WCP - Shoulder 3 View LT CPT Code: Final Report FULL RESULT: PROCEDURE: Shoulder 3 View LT INDICATIONS: LEFT HUMERAL HEAD FRACTURE TECHNIQUE: 3 views of the shoulder were acquired. COMPARISON: Left shoulder x-ray 10/19/2019, chest CT 10/19/2019. FINDINGS: Bones: A comminuted fracture of the proximal humeral head and neck are redemonstrated. There is probable slight interval increased displacement of the fracture fragments although comparison is limited due to differences in projection. Impaction of the humeral shaft component is demonstrated. Multiple left rib fractures are redemonstrated as seen on the prior CT, involving the first through fifth ribs. Soft tissues: No definite pneumothorax. No suspicious soft tissue calcifications. IMPRESSION: 1. Comminuted fracture of the left humeral head and neck redemonstrated. There is suggestion of increased displacement compared to the prior study although evaluation is limited by differences in projection. Further characterization may be obtained with a shoulder CT if clinically indicated. 2. Multiple left rib fractures redemonstrated. Reviewed by: Luis Alfredo Ward MD on 10/29/2019 3:05 PM PDT Approved by: Luis Alfredo Ward MD on 10/29/2019 3:05 PM PDT Station ID: [id number]
== END ==
LOC: DI.WCP 07:34
PROVIDERS: ATTEND Physician Assistant
DX: S42.292D Other displaced fracture of upper end of left humerus, subsequent encounter for fracture with routine healing (principal); S22.42XD Multiple fractures of ribs, left side, subsequent encounter for fracture with routine healing

== ENCOUNTER 2019-11-27 12:01 | Outpatient (CLI) | payer MEDICARE, OTHER ==
--- NOTE | 2019-11-27 12:05 | XRAY Report ---
PROCEDURE: Humerus LT INDICATIONS: LEFT HUMERUS FRACTURE TECHNIQUE: 2 views of the humerus were acquired. COMPARISON: Left shoulder radiographs dated 10/29/2019 FINDINGS: Bones: Comminuted impacted fracture of the left proximal humerus is redemonstrated with mild callus f ormation compatible with interval healing changes. Multiple rib fractures are again seen which appear mildly displaced and not significantly changed in alignment when compared to the radiographs from . Soft tissues: No suspicious soft tissue calcifications. IMPRESSION: Mild progressive healing changes at the previously seen left proximal humeral fracture with unchanged alignment. Left-sided rib fractures are again noted. Reviewed by: Steve Johnston MD on 11/27/2019 12:04 PM PDT Approved by: Steve Johnston MD on 11/27/2019 12:04 PM PDT Station ID: [id number]
== END 2019-11-27 23:59 | disposition home or self-care (01) ==
LOC: DI.WCP 12:01
PROVIDERS: ATTEND Physician Assistant
DX: M25.512 Pain in left shoulder (principal); S42.202D Unspecified fracture of upper end of left humerus, subsequent encounter for fracture with routine healing; S22.42XD Multiple fractures of ribs, left side, subsequent encounter for fracture with routine healing

== ENCOUNTER 2020-01-22 11:36 | Outpatient (CLI) | payer MEDICARE, OTHER ==
--- NOTE | 2020-01-22 11:39 | XRAY Report ---
PROCEDURE: Humerus LT INDICATIONS: LEFT HUMERUS FRACTURE TECHNIQUE: 2 views of the humerus were acquired. COMPARISON: 11/27/2019, 10/29/2019 and 10/19/2019 FINDINGS: Bones: There is interval further healing at patient's known proximal humeral shaft fracture site with increased sclerosis. No new fracture or dislocation. Alignment of left humerus is unchanged from shelbie or study.. No suspicious bony lesions. Soft tissues: No suspicious soft tissue calcifications. IMPRESSION: Interval further healing of proximal humeral fracture site with stable humeral alignment. Reviewed by: Parish Mcknight MD on 01/22/2020 10:38 AM LAITH Approved by: Parish Mcknight MD on 01/22/2020 10:38 AM LAITH Station ID: [id number]
== END 2020-01-22 23:59 | disposition home or self-care (01) ==
LOC: DI.WCP 11:36
PROVIDERS: ATTEND Physician Assistant
DX: M25.512 Pain in left shoulder (principal); S42.202A Unspecified fracture of upper end of left humerus, initial encounter for closed fracture

== ENCOUNTER 2021-09-07 10:57 | Outpatient (CLI) | payer MEDICARE, OTHER ==
--- NOTE | 2021-09-07 12:09 | XRAY Report ---
PROCEDURE: Chest 2 View X-Ray INDICATIONS: BILAT LEG SWELLING, ORTHOPNEA TECHNIQUE: 2 view(s) of the chest. COMPARISON: 06/05/2019 FINDINGS: Surgical changes and devices: None. Lungs and pleura: No pleural effusion or pneumothorax. Right lung base scarring is similar to prior studies. NO acute airspace opacity. Mediastinum: Mediastinal contours are normal. Heart size is normal. Bones and chest wall: No suspicious bony abnormalities. Soft tissues appear unremarkable. IMPRESSION: No acute finding. Reviewed by: Ladarius Degroot MD on 09/07/2021 12:08 PM PDT Approved by: Ladarius Degroot MD on 09/07/2021 12:08 PM PDT Station ID: [id number]
== END 2021-09-07 10:58 | disposition home or self-care (01) ==
LOC: DI.N 10:57
PROVIDERS: ATTEND Physician Assistant
DX: R22.43 Localized swelling, mass and lump, lower limb, bilateral (principal); R06.01 Orthopnea

== ENCOUNTER 2021-10-23 15:18 | Outpatient (CLI) | payer MEDICARE, OTHER ==
--- NOTE | 2021-10-23 16:57 | XRAY Report ---
PROCEDURE: Chest 2 View X-Ray INDICATIONS: COUGH TECHNIQUE: 2 view(s) of the chest. COMPARISON: 09/07/2021 chest x-ray. 06/05/2019 chest x-ray. FINDINGS: Surgical changes and devices: None. Lungs and pleura: No pleural effusions or pneumothorax. No change in mild patchy opacity within the right mid/lower lung. Mediastinum: Mediastinal contours are normal. Heart size is normal. Bones and chest wall: No suspicious bony abnormalities. Soft tissues appear unremarkable. IMPRESSION: No acute process. Reviewed by: Besys Acuna MD on 10/23/2021 4:56 PM PDT Approved by: Bessy Acuna MD on 10/23/2021 4:56 PM PDT Station ID: [id number]
== END 2021-10-23 15:19 | disposition home or self-care (01) ==
LOC: DI.N 15:18
PROVIDERS: ATTEND Student in an Organized Health Care Education/Training Program
DX: R05.1 Acute cough (principal)

== ENCOUNTER 2022-02-17 21:21 | Emergency (ER) | payer MEDICARE, OTHER ==
[2022-02-17] MEDS ORDERED: IPRATROPIUM/ALBUTEROL 3 ML NEB INH STA (21:58)
[2022-02-17] MEDS ORDERED: predniSONE 20 MG TABLET PO STA (22:26)
[2022-02-17] MEDS ORDERED: ALBUTEROL NEB 2.5 MG/3 ML INH STA (22:27)
[2022-02-17 22:57] LABS: CORONAVIRUS 229E-RESP PCR NOT DETECTED; CORONAVIRUS HKU1-RESP PCR NOT DETECTED; CORONAVIRUS NL63-RESP PCR NOT DETECTED; CORONAVIRUS OC43-RESP PCR NOT DETECTED; HUMAN METAPNEUMOVIRUS NOT DETECTED; INFLUENZA A H3- RESP PCR PANEL DETECTED; RHINOVIRUS/ENTEROVIRUS NOT DETECTED; SARS-CoV-2 -RESP PCR PANEL NOT DETECTED
[2022-02-17 22:58] LABS: B. PARAPERTUSSIS- RESP PCR PAN NOT DETECTED; B. PERTUSSIS- RESP PCR PANEL NOT DETECTED; C. PNEUMONIAE- RESP PCR PANEL NOT DETECTED; INFLUENZA B - RESP PCR PANEL NOT DETECTED; M. PNEUMONIAE- RESP PCR PANEL NOT DETECTED; PARAINFLUENZA VIRUS 1 NOT DETECTED; PARAINFLUENZA VIRUS 2 NOT DETECTED; PARAINFLUENZA VIRUS 3 NOT DETECTED; PARAINFLUENZA VIRUS 4 NOT DETECTED; RSV- RESP PCR PANEL NOT DETECTED
--- NOTE | 2022-02-17 23:30 | ED Physician Documentation ---
PD HPI DYSPNEA - Stated complaint Stated Complaint: COUGH, LOW O2 - Chief complaint Chief Complaint: Resp - History obtained from History obtained from: Patient - Additional information Additional information: Patient is a 81-year-old female with a history of COPD presenting for evaluation of productive cough that is been present since the beginning of the month. She was seen at the walk-in clinic earlier this week and the provider there felt she clinically had pneumonia and started her on doxycycline.She was also given a one-time dose of Decadron and Tessalon Perles. She has oxygen at home to wear as needed and when she was checking her O2 saturations tonight, It was 86% on 2 L which concerned her. She has not been using her albuterol today. She has had a productive cough of clear to yellow sputum. She has had sick contacts. She has not taken a COVID test. She felt that her symptoms were getting better on Saturday but started to worsen again on with her cough. She denies chest pain, abdominal pain, vomiting or diarrhea. Review of Systems Constitutional: denies: Fever Nose: denies: Congestion Cardiac: denies: Chest pain / pressure Respiratory: reports: Dyspnea, Cough GI: denies: Abdominal Pain Musculoskeletal: denies: Extremity swelling Neurologic: denies: Headache PD PAST MEDICAL HISTORY - Past Medical History Past Medical History: Yes Cardiovascular: High cholesterol Respiratory: Asthma, COPD Endocrine/Autoimmune: Type 2 diabetes GI: GERD, Chronic diarrhea, Chronic constipation : None HEENT: None Psych: Depression Musculoskeletal: Osteoarthritis, Osteoporosis, Chronic back pain Derm: None - Past Surgical History Past Surgical History: Yes General: Cholecystectomy, Appendectomy 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 HEENT: Cataracts, Tonsil/Adenoidectomy - Present Medications Home Medications: Ambulatory Orders Medication Instructions Recorded Confirmed Albuterol Sulfate [Proair Hfa] 2 puffs IH Q4HR PRN 11/06/13 09/25/19 Alprazolam 0.5 mg PO BID PRN 11/06/13 09/25/19 Cyanocobalamin [Vitamin B-12] 500 mcg PO DAILY 11/06/13 09/25/19 Escitalopram [Lexapro] 20 mg PO DAILY 11/06/13 09/25/19 Glycopyrrolate 2 mg PO TID PRN 11/06/13 09/25/19 Lisinopril 10 mg PO DAILY 11/06/13 09/25/19 Propranolol [Inderal] 10 mg PO DAILY 11/06/13 09/25/19 Trazodone HCl 100 - 200 mg PO QPM PRN 11/06/13 09/25/19 Triamcinolone Acetonide [Nasacort] 1 spray NS BID 11/06/13 09/25/19 metFORMIN [Glucophage] 500 mg PO BIDWM 11/06/13 09/25/19 Fluticasone/Salmeterol [Advair Hfa 2 puffs IH BID 08/24/15 09/25/19 230-21 Mcg Inhaler] Albuterol 2.5 mg INH Q4H PRN 09/25/19 09/25/19 Alendronate Sodium 70 mg PO OAW 09/25/19 09/25/19 Carbamazepine 200 mg PO BID PRN 09/25/19 09/25/19 Ergocalciferol (Vitamin D2) 0 unit PO DAILY 09/25/19 09/25/19 [Vitamin D2] Famotidine 20 mg PO DAILY 09/25/19 09/25/19 Gabapentin [Neurontin] 100 mg PO TID 09/25/19 09/25/19 Latanoprost 0.005% Ophth Drops 1 drops EACHEYE DAILY 09/25/19 09/25/19 [Xalatan Ophth Drops] Magnesium Oxide [Magnesium] 400 mg PO DAILY 09/25/19 09/25/19 Meloxicam [Mobic] 7.5 mg PO BID PRN #20 tablet 09/25/19 Rabeprazole Sodium 20 mg PO BID 09/25/19 09/25/19 Rosuvastatin Calcium 20 mg PO DAILY 09/25/19 09/25/19 Tiotropium [place] [Spiriva 2 inh IH DAILY 09/25/19 09/25/19 Respimat] predniSONE [Prednisone] 20 mg PO DAILY #5 tablet 09/25/19 predniSONE [Deltasone] 60 mg PO DAILY 5 Days #15 tablet 02/17/22 - Allergies Allergies/Adverse Reactions: Allergies Allergy/AdvReac Type Severity Reaction Status Date / Time No Known Drug Allergies Allergy Verified 02/17/22 21:37 - Social History Does the pt smoke?: No Smoking Status: Never smoker Does the pt drink ETOH?: Yes Does the pt have substance abuse?: No - Immunizations Immunizations are current?: Yes Immunizations: TDAP current <10years - POLST Patient has POLST: Yes PD ED PE NORMAL - General General: Alert and oriented X 3, No acute distress, Well developed/nourished - HEENT HEENT: Atraumatic, Moist mucous membranes - Neck Neck: Supple, no meningeal sign - Cardiac Cardiac: RRR, Strong equal pulses - Respiratory Respiratory: No respiratory distress, Other (Diffuse expiratory wheezing bilaterally) - Abdomen Abdomen: Soft, Non tender - Derm Derm: Warm and dry - Extremities Extremities: No edema - Neuro Neuro: Normal speech Results - Vitals Vitals: Vital Signs - 24 hr 02/17/22 02/17/22 02/17/22 21:37 21:43 22:10 Temperature 37.3 C 37.3 C Heart Rate 100 100 102 H Respiratory 20 20 20 Rate Blood Pressure 160/100 H 160/90 H O2 Saturation 88 L 98 If not protocol 2 2 : Oxygen Flow, liters/minute 02/17/22 02/17/22 22:30 23:48 Temperature 36.8 C Heart Rate 102 H 100 Respiratory 20 18 Rate Blood Pressure 127/71 O2 Saturation 96 If not protocol 2 : Oxygen Flow, liters/minute Oxygen O2 Source Nasal cannula Oxygen Flow Rate 2 - Labs Labs: Laboratory Tests 02/17/22 22:03 Nasal Adenovirus (PCR) NOT DETECTED Nasal B. parapertussis DNA (PCR) NOT DETECTED Nasal Coronavir 229E PCR NOT DETECTED Nasal Coronavir HKU1 PCR NOT DETECTED Nasal Coronavir NL63 PCR NOT DETECTED Nasal Coronavir OC43 PCR NOT DETECTED Nasal Enterovir/Rhinovir PCR NOT DETECTED Nasal Influenza A H3 PCR DETECTED A Nasal Influenza B PCR NOT DETECTED Nasal Parainfluen 1 PCR NOT DETECTED Nasal Parainfluen 2 PCR NOT DETECTED Nasal Parainfluen 3 PCR NOT DETECTED Nasal Parainfluen 4 PCR NOT DETECTED Nasal RSV (PCR) NOT DETECTED Nasal B.pertussis DNA PCR NOT DETECTED Nasal C.pneumoniae (PCR) NOT DETECTED Danielito Human Metapneumo PCR NOT DETECTED Nasal M.pneumoniae (PCR) NOT DETECTED Nasal SARS-CoV-2 (PCR) NOT DETECTED PD MEDICAL DECISION MAKING - ED course Complexity details: reviewed results, re-evaluated patient, d/w patient ED course: Patient with URI symptoms for several weeks with worsening cough and feeling short of breath. Here her oxygenation appears stable on room air and on 2 L Which she has available to her at home. She has wheezing on exam which is improved with neb treatments. I have started her on steroids. Her chest x-ray is negative for pneumonia. Her respiratory panel is positive for influenza A. I do believe she is outside of the window for Tamiflu. Patient is feeling better after breathing treatments. Patient is counseled on continuing supportive care as well as prednisone and albuterol for her COPD. She is counseled on concerning symptoms to return for. Departure - Departure Disposition: Home, Self Care Clinical Impression: Moderate COPD (chronic obstructive pulmonary disease), Influenza A Condition: Stable Instructions: ED COPD Flare, ED Flu Prescriptions: predniSONE [Deltasone] 60 mg PO DAILY 5 Days #15 tablet Comments: You have tested positive for influenza A. I believe the flu is exacerbating your COPD. Unfortunately you are outside of the window for medication such as Tamiflu. I have sent a prescription for steroids to [facility] in [place]. Please continue with using your albuterol treatments at home. I would recommend trying them every 4-6 hours tomorrow while awake to see if this helps with your breathing and your cough.I would also recommend completing the course of the antibiotic that you were started on. Use your oxygen at home as needed. Please get plenty of rest and make sure you stay hydrated. If you have any worsening symptoms please consider return to the emergency department. Discharge Date/Time: 02/17/22 23:40
--- NOTE | 2022-02-17 23:37 | XRAY Report ---
PROCEDURE: Chest 1 View X-Ray INDICATIONS: cough/congestion TECHNIQUE: One view of the chest was acquired. COMPARISON: Prior chest plain films 10/23/2021. FINDINGS: Surgical changes and devices: Several small surgical clips right hilar region.. Lungs and pleura: No pleural effusions or pneumothorax. Lungs are clear. Mediastinum: Mediastinal contours appear normal. Heart size is normal. Bones and chest wall: No suspicious bony lesions. Overlying soft tissues appear unremarkable. IMPRESSION: No pneumonia found. Postsurgical change as discussed right hilar region. Reviewed by: Santosh Penn MD on 02/17/2022 11:44 PM PST Approved by: Santosh Penn MD on 02/17/2022 11:44 PM PST Station ID: [id number]
[2022-02-17 23:51] VITALS: BP 127/71
== END 2022-02-17 23:40 | disposition home or self-care (01) ==
LOC: ED 21:21
DX: J44.1 Chronic obstructive pulmonary disease with (acute) exacerbation (principal); J10.1 Influenza due to other identified influenza virus with other respiratory manifestations; E11.9 Type 2 diabetes mellitus without complications; Z79.84 Long term (current) use of oral hypoglycemic drugs; Z79.899 Other long term (current) drug therapy
CPT/HCPCS: 71045; 87633; 94640; 99284; J7512

== ENCOUNTER 2022-03-09 10:43 | Outpatient (CLI) | payer MEDICARE, OTHER | END 2022-03-09 23:59 | disposition E | LOC: EMS 10:43 ==